=== PATIENT | female | born 1990 | race Caucasian/White ===

== ENCOUNTER 2020-03-25 17:19 | Emergency (ER) | payer OTHER ==
[~2020-03-25] VITALS: Ht 172.7 cm; Wt 97.8 kg
[~2020-03-25 17:19] MED LIST: AMOX500T PO; PRENATAL ONE T1 EACH PO; TRAM50TA PO
[2020-03-25] MEDS ORDERED: IBUPROFEN 600 MG TABLET. PO ONE (18:00)
--- NOTE | 2020-03-25 18:02 | PHYS DOC ---
Past History Past Medical History: Other Additional Past Medical Histor: HX OF OPIOD ABUSE (TASHI PATRICK APRN) Past Surgical History: No Surgical History (TASHI PATRICK APRN) Smoking: Cigarettes, Less than 1pk/day Alcohol Use: None Drug Use: None (TASHI PATRICK APRN) Adult General Chief Complaint Chief Complaint: HIP PAIN [facility] HPI Patient is a 29-year-old female patient presents with right hip pain after fall. Patient reports she had fallen down the steps at home proximally 2 weeks ago, has continued has a pain in her right hip with some decreased range of motion. States she did not have any numbness or tingling, no paresthesias, however she does feel like she cannot move her leg very well, states in the morning when she gets up her leg is very stiff and is very difficult for her to move it, however does improve slightly throughout the day after taking some Excedrin. States she has discomfort anytime stretching raise her leg or extended forwards or backwards. Denies any fever, denies any lesions. Does report 3-year history of taking buprenorphine and has not been taking any medications because she is concerned of a reaction (TASHI PATRICK APRN) Review of Systems Review of Systems Constitutional: Denies fever or chills [] Eyes: Denies change in visual acuity, redness, or eye pain [] HENT: Denies nasal congestion or sore throat [] Respiratory: Denies cough or shortness of breath [] Cardiovascular: No additional information not addressed in HPI [] GI: Denies abdominal pain, nausea, vomiting, bloody stools or diarrhea [] : Denies dysuria or hematuria [] Musculoskeletal: Denies back pain reports right hip pain and decreased range of motion to right leg [] Integument: Denies rash or skin lesions [] Neurologic: Denies headache, focal weakness or sensory changes [] Endocrine: Denies polyuria or polydipsia [] All other systems were reviewed and found to be within normal limits, except as documented in this note. (TASHI PATRICK APRN) Allergies Allergies Allergies Coded Allergies Type Severity Reaction Last Updated Verified No Known Drug Allergies 07/26/13 No (TASHI PATRICK APRN) Physical Exam Physical Exam Constitutional: Well developed, well nourished, no acute distress, non-toxic appearance. [] Neck: Normal range of motion, no tenderness, supple, no stridor. [] Cardiovascular:Heart rate regular rhythm, no murmur [] Lungs & Thorax: Bilateral breath sounds clear to auscultation [] Skin: Warm, dry, no erythema, no rash. [] Back: No tenderness, no CVA tenderness. [] Extremities: no cyanosis, no clubbing, no edema. Tenderness noted to right hip, anterior and posterior to the acetabulum. Decreased range of motion on anterior leg raise due to discomfort. [] Neurologic: Alert and oriented X 3, normal motor function, normal sensory function, no focal deficits noted. [] Psychologic: Affect normal, judgement normal, mood normal. [] (TASHI PATRICK APRN) Current Patient Data Vital Signs Vital Signs Date Time Temp Pulse Resp B/P (MAP) Pulse Ox O2 Delivery O2 Flow Rate FiO2 03/25/20 17:20 97.3 78 18 133/82 (99) 100 Room Air (TASHI PATRICK APRN) EKG EKG [] (TASHI PATRICK APRN) Radiology/Procedures Radiology/Procedures [] Per Dr. Nicholson, no acute fracture or dislocation noted. (TASHI PATRICK APRN) Heart Score Risk Factors: Risk Factors: DM, Current or recent (<one month) smoker, HTN, HLP, family history of CAD, obesity. Risk Scores: Risk Factors: DM, Current or recent (<one month) smoker, HTN, HLP, family history of CAD, obesity. (TASHI PATRICK APRN) Course & Med Decision Making Course & Med Decision Making Pertinent Labs and Imaging studies reviewed. (See chart for details) [] Reviewed imaging with patient, without noted fracture or abnormalities. Discussed with patient continued use of Tylenol or ibuprofen as needed for discomfort. With patient's current use of buprenorphine, patient agreeable to no stronger pain medications and no muscle relaxants at this time. Patient to follow-up primary care as needed. Patient to consider stretching activities with leg and hip. (TASHI PATRICK APRN) Dragon Disclaimer Dragon Disclaimer This electronic medical record was generated, in whole or in part, using a voice recognition dictation system. (TASHI PATRICK APRN) Departure Departure: Impression: Primary Impression: Contusion of right hip and thigh Additional Impression: Fall (on) (from) other stairs and steps, initial encounter Disposition: 01 DC HOME SELF CARE/HOMELESS Condition: GOOD Referrals: NIESHA OLSEN MD (PCP) Patient Instructions: Contusion, Hip Pointer (Iliac Crest Contusion)-[facility] Additional Instructions: As we discussed, you may continue to use Tylenol ibuprofen as needed for your discomfort. You may take 600 mg ibuprofen every 6 hours as needed for the pain. You may take 1000 mg Tylenol every 6 hours for pain continue to try to stretch and exercise your right leg and hip gently. Follow-up with your primary care provider as needed if you do not have any improvement Attending Signature Attending Signature I have reviewed the PA/SHEET ROCK TAPER HELPER's note and plan of care. I was available for consultation as needed during the patient's visit in the emergency department. I agree with the clinical impression, plan, and disposition. (BRYAN NICHOLSON DO) Problem Qualifiers Primary Impression: Contusion of right hip and thigh Encounter type: initial encounter Qualified Codes: S70.01XA - Contusion of right hip, initial encounter; S70.11XA - Contusion of right thigh, initial encounter TASHI PATRICK APRN Mar 25, 2020 18:02 BRYAN NICHOLSON DO Mar 25, 2020 22:05
[2020-03-25 19:20] VITALS: BP 138/70
--- NOTE | 2020-03-25 19:43 | RAD ---
EXAM: HIP RIGHT 2V WITH PELVIS 03/25/2020 5:56 PM CLINICAL INDICATION:Pain after fall COMPARISON:None TECHNIQUE:AP view the pelvis and AP and frog-leg lateral view of the right hip FINDINGS:There is no acute fracture. The hip joint spaces are maintained. No pubic symphysis or sacroiliac joint widening. The lower lumbar spine is normal. IMPRESSION:No acute osseous abnormality. Electronically signed by: Jeniffer Virgen MD (03/25/2020 7:40 PM) [id number]
== END 2020-03-25 19:20 | disposition home or self-care (01) ==
LOC: ER 17:19
DX: S70.01XA Contusion of right hip, initial encounter (principal); F17.210 Nicotine dependence, cigarettes, uncomplicated; F19.10 Other psychoactive substance abuse, uncomplicated; W10.8XXA Fall (on) (from) other stairs and steps, initial encounter; Y93.89 Activity, other specified; Y92.89 Other specified places as the place of occurrence of the external cause; Y99.8 Other external cause status
CPT/HCPCS: 73502; 99283

== ENCOUNTER 2021-07-28 20:03 | Emergency (ER) | payer OTHER ==
[~2021-07-28] VITALS: Ht 172.7 cm; Wt 97.8 kg
[2021-07-28 20:24] VITALS: BP 152/91
[2021-07-28] MEDS ORDERED: IBUPROFEN 600 MG TABLET. PO ONE (20:45)
--- NOTE | 2021-07-28 21:19 | RAD ---
XR EXAM OF ANKLE_LEFT 3V, XR FOOT_LEFT 3 VIEWS History: Reason: FALL LEFT ANKLE INJURY / Spl. Instructions: / History: . Pain Technique: 3 views left foot and 3 views left ankle Comparison: None. Findings: No dislocation. No acute fracture. Symmetric ankle mortise. Small plantar calcaneal spur. Normal alignment of the foot. No acute fracture. Impression: 1. No acute osseous abnormality. Electronically signed by: Torrey Hu DO (07/28/2021 9:16 PM) [facility]
--- NOTE | 2021-07-28 21:19 | RAD ---
XR EXAM OF ANKLE_LEFT 3V, XR FOOT_LEFT 3 VIEWS History: Reason: FALL LEFT ANKLE INJURY / Spl. Instructions: / History: . Pain Technique: 3 views left foot and 3 views left ankle Comparison: None. Findings: No dislocation. No acute fracture. Symmetric ankle mortise. Small plantar calcaneal spur. Normal alignment of the foot. No acute fracture. Impression: 1. No acute osseous abnormality. Electronically signed by: Torrey Hu DO (07/28/2021 9:16 PM) [facility]
--- NOTE | 2021-07-28 21:47 | PHYS DOC ---
Past History Past Medical History: Other Additional Past Medical Histor: HX OF OPIOD ABUSE (MATTHEW MAJOR APRN) Past Surgical History: No Surgical History (MATTHEW MAJOR APRN) Smoking: Cigarettes, Less than 1pk/day Alcohol Use: None Drug Use: None (MATTHEW MAJOR APRN) General Adult EDM: Chief Complaint: FOOT INJURY PAIN HPI: HPI: Patient is a 31-year-old female who presents with. Patient states she was trying to make her child's bunk bed when her foot got caught in the ladder and twisted. Patient is reporting lateral ankle pain. Denies taking anything at home for discomfort. Range of motion and sensation are both intact. Pain is increased with ambulation. Patient has history of substance abuse. (MATTHEW MAJOR APRN) Review of Systems: Review of Systems: ROS At least 10 ROS systems have been reviewed and are negative except as documented in the HPI. General: Negative except as outlined in HPI above. Skin: Negative except as outlined in HPI above. HEENT: Negative except as outlined in HPI above. Neck: Negative except as outlined in HPI above. Respiratory: Negative except as outlined in HPI above.. Cardiovascular: Negative except as outlined in HPI above. Abdomen: Negative except as outlined in HPI above. : Negative except as outlined in HPI above. Back/MSK: Negative except as outlined in HPI above. Neuro: Negative except as outlined in HPI above. Psych: Negative except as outlined in HPI above. (MATTHEW MAJOR APRN) Current Medications: Current Meds: Current Medications Medications (Trade) Dose Ordered Sig/Lacey Start Time Stop Time Status Last Admin Dose Admin Ibuprofen (Motrin) 600 mg 1X ONCE 07/28/21 20:45 07/28/21 20:46 DC 07/28/21 21:33 600 MG (MATTHEW MAJOR APRN) Allergies: Allergies: Allergies Coded Allergies Type Severity Reaction Last Updated Verified naloxone Adverse Reaction Unknown 07/28/21 Yes (MATTHEW MAJOR APRN) Physical Exam: PE: Constitutional: Well developed, well nourished, no acute distress, non-toxic appearance. [] HENT: Normocephalic, atraumatic, bilateral external ears normal, oropharynx moist, no oral exudates, nose normal. [] Eyes: PERRLA, EOMI, conjunctiva normal, no discharge. [] Neck: Normal range of motion, no tenderness, supple, no stridor. [] Cardiovascular:Heart rate regular rhythm, no murmur [] Lungs & Thorax: Bilateral breath sounds clear to auscultation [] Abdomen: Bowel sounds normal, soft, no tenderness, no masses, no pulsatile masses. [] Skin: Warm, dry, no erythema, no rash. [] Back: No tenderness, no CVA tenderness. [] Extremities: Left ankle tenderness, pedal pulses intact, ROM intact, no edema. [] Neurologic: Alert and oriented X 3, normal motor function, normal sensory function, no focal deficits noted. [] Psychologic: Affect normal, judgement normal, mood normal. [] (MATTHEW MAJOR APRN) Current Patient Data: Vital Signs: Vital Signs Date Time Temp Pulse Resp B/P (MAP) Pulse Ox O2 Delivery O2 Flow Rate FiO2 07/28/21 20:24 98.0 84 18 152/91 (111) 94 (MATTHEW MAJOR APRN) EKG: EKG: [] (MATTHEW MAJOR APRN) Radiology/Procedures: Radiology/Procedures: []XR EXAM OF ANKLE_LEFT 3V, XR FOOT_LEFT 3 VIEWS History: Reason: FALL LEFT ANKLE INJURY / Spl. Instructions: / History: . Pain Technique: 3 views left foot and 3 views left ankle Comparison: None. Findings: No dislocation. No acute fracture. Symmetric ankle mortise. Small plantar calcaneal spur. Normal alignment of the foot. No acute fracture. Impression: 1. No acute osseous abnormality. Electronically signed by: Torrey Hu DO (07/28/2021 9:16 PM) [facility]_LEFT [facility]V, XR FOOT_LEFT 3 VIEWS History: Reason: FALL LEFT ANKLE INJURY / Spl. Instructions: / History: . Pain Technique: 3 views left foot and 3 views left ankle Comparison: None. Findings: No dislocation. No acute fracture. Symmetric ankle mortise. Small plantar calcaneal spur. Normal alignment of the foot. No acute fracture. Impression: 1. No acute osseous abnormality. Electronically signed by: Torrey Hu DO (07/28/2021 9:16 PM) [facility] (MATTHEW MAJOR APRN) Heart Score: C/O Chest Pain: No Risk Factors: Risk Factors: DM, Current or recent (<one month) smoker, HTN, HLP, family history of CAD, obesity. Risk Scores: Score 0 - 3: 2.5% MACE over next 6 weeks - Discharge Home Score 4 - 6: 20.3% MACE over next 6 weeks - Admit for Clinical Observation Score 7 - 10: 72.7% MACE over next 6 weeks - Early Invasive Strategies (MATTHEW MAJOR APRN) Course & Med Decision Making: Course & Med Decision Making Pertinent Labs and Imaging studies reviewed. (See chart for details) [] 31-year-old female who presents with left ankle pain for getting her foot stuck in the ladder of the bed. Range of motion and sensation are intact. X- ray of left ankle ordered. Patient's pain was treated with Motrin. X-ray is unremarkable. No sign of acute fracture. Patient most likely has an ankle sprain. Educated on RICE. Ibuprofen and Tylenol at home for pain. Continue wearing Fahad wrap. Patient needs to follow-up with PCP if pain does not resolve in the next 5 to 7 days. (MATTHEW MAJOR APRN) Course & Med Decision Making Did not see or evaluate patient. Did not discuss patient with PARTY PLAN SALESPERSON. Generally agree with PARTY PLAN SALESPERSON's work-up and disposition per note (LOVE BOWEN MD) Dragon Disclaimer: Dragon Disclaimer: This electronic medical record was generated, in whole or in part, using a voice recognition dictation system. (MATTHEW MAJOR APRN) Departure Departure: Impression: Primary Impression: Ankle pain, left Qualified Codes: M25.572 - Pain in left ankle and joints of left foot Disposition: HOME / SELF CARE / HOMELESS Condition: STABLE Referrals: NIESHA OLSEN MD (PCP) Patient Instructions: Ankle Pain Additional Instructions: You are seen in the emergency room for ankle pain. X-rays were negative. Continue taking ibuprofen and Tylenol at home for pain. Follow-up with your PCP in 5 to 7 days if symptoms do not resolve. Rest, ice, elevate, Fahad wrap to help with swelling and pain. EMERGENCY DEPARTMENT GENERAL DISCHARGE INSTRUCTIONS Thank you for coming to [facility] (ED) today and trusting us with you care. We trust that you had a positivie experience in our Emergency Department. If you wish to speak to the department management, you may call the director at [phone]. YOUR FOLLOW UP INSTRUCTIONS ARE FOLLOWS: 1. Do you have a private Doctor? If you do not have a private doctor, please ask for a resource list of physicians or clinics that may be able to assist you with follow up care. 2. The Emergency Physician has interpreted your x-rays. The X-Ray specialist will also review them. If there is a change in the findings, you will be notified in 48 hours when at all possible. 3. A lab test or culture has been done, your results will be reviewed and you will be notified if you need a change in treatment. ADDITIONAL INSTRUCTIONS AND INFORMATION: 1. Your care today has been supervised by a physician who is specially trained in emergency care. Many problems require more than one evaluation for a complete diagnosis and treatment. We recommend that you schedule your follow up appointment as recommended to ensure complete treatment of you illness or injury. If you are unable to obtain follow up care and continue to have a problem, or if your condition worsens, we recommend that you return to the ED. 2. We are not able to safely determine your condition over the phone nor are we able to give sound medical advice over the phone. For these safety reasons, if you call for medical advice we will ask you to come to the ED for further evaluation. 3. If you have any questions regarding these discharge instructions please call the ED at [phone]. SAFETY INFORMATION: In the interest of safety, wellness, and injury prevention; we encourage you to wear your sealbelt, if you smoke; quite smoking, and we encourage family to use a protective helmet for bicycling and other sporting events that present an increased risk for head injury. IF YOUR SYMPTOMS WORSEN OR NEW SYMPTOMS DEVELOP, OR YOU HAVE CONCERNS ABOUT YOUR CONDITION; OR IF YOUR CONDITION WORSENS WHILE YOU ARE WAITING FOR YOUR FOLLOW UP APPO INTMENT; EITHER CONTACT YOUR PRIMARY CARE DOCTOR, THE PHYSICIAN WHOSE NAME AND NUMBER YOU WERE GIVEN, OR RETURN TO THE ED IMMEDIATELY. MATTHEW MAJOR APRN Jul 28, 2021 21:47 LOVE BOWEN MD Jul 28, 2021 22:24
== END 2021-07-28 22:03 | disposition home or self-care (01) ==
LOC: ER 20:03
DX: M25.572 Pain in left ankle and joints of left foot (principal); F17.210 Nicotine dependence, cigarettes, uncomplicated; Z88.8 Allergy status to other drugs, medicaments and biological substances
CPT/HCPCS: 73610; 73630; 99284